=== PATIENT | female | born 1940 | race African-American/Black ===

== ENCOUNTER 2016-12-13 13:36 | Emergency (ER) | payer MEDICARE, OTHER ==
[~2016-12-13] VITALS: Ht 165.1 cm; Wt 80.0 kg
[~2016-12-13 13:36] MED LIST: NAPR220T95 PO
[2016-12-13 13:39] VITALS: BP 198/91; PULSE 81; RESP 12; TEMP 98.2; O2SAT 98
--- NOTE | 2016-12-13 14:12 | PD ---
HPI Chief Complaint: Dizziness Time Seen by Provider: 14:11 Travel History International Travel<30 days: No Contact w/Intl Traveler<30days: No Traveled to known affect area: No History of Present Illness HPI 76-year-old female with no significant medical history presents to the emergency department for evaluation. Patient states that she got up this morning and was feeling well. She had some coughing a little something to eat. She states she then began to feel lightheaded and not quite herself. She states this has continued intermittently throughout the day. She states right now she "just doesn't feel right." Denies any headache. No nausea or vomiting. No focal deficits or weakness. No chest pain or shortness of breath. No recent illnesses, fever, or chills. She has no other symptoms to report. [facility] Past Medical History Cardiovascular Problems: Yes (HTN) : 4 Para: 4 Past Surgical History Hysterectomy: Yes Social History Alcohol Use: Yes (WINE) Tobacco Use: No Substance Use: No Allergies-Medications (Allergen,Severity, Reaction): Coded Allergies: No Known Allergies (Verified , 12/13/16) Reported Meds & Prescriptions Reported Meds & Active Scripts Active No Active Prescriptions or Reported Medications Review of Systems Except as stated in HPI: all other systems reviewed are Neg Physical Exam Narrative GENERAL: Well-nourished male patient, ambulatory with a nonantalgic gait, no acute distress SKIN: Warm and dry. HEAD: Atraumatic. Normocephalic. EYES: Pupils equal and round. No scleral icterus. No injection or drainage. ENT: No nasal bleeding or discharge. Mucous membranes pink and moist. NECK: Trachea midline. No JVD. CARDIOVASCULAR: Regular rate and rhythm. No murmur appreciated. RESPIRATORY: No accessory muscle use. Clear to auscultation. Breath sounds equal bilaterally. GASTROINTESTINAL: Abdomen soft, non-tender, nondistended. Hepatic and splenic margins not palpable. MUSCULOSKELETAL: No obvious deformities. No clubbing. No cyanosis. No edema. NEUROLOGICAL: Awake and alert. No obvious cranial nerve deficits. Motor grossly within normal limits. Normal speech. PSYCHIATRIC: Appropriate mood and affect; insight and judgment normal. Data Data Last Documented VS Vital Signs Date Time Temp Pulse Resp B/P Pulse Ox O2 Delivery O2 Flow Rate FiO2 12/13/16 18:42 98.1 79 18 186/86 99 Room Air Orders Electrocardiogram (12/13/16 14:11) Basic Metabolic Panel (Bmp) (12/13/16 14:11) Complete Blood Count With Diff (12/13/16 14:11) Magnesium (Mg) (12/13/16 14:11) Ckmb (Isoenzyme) Profile (12/13/16 14:11) Troponin I (12/13/16 14:11) Act Partial Throm Time (Ptt) (12/13/16 14:11) Prothrombin Time / Inr (Pt) (12/13/16 14:11) Urinalysis - C+S If Indicated (12/13/16 14:11) Hydralazine (Apresoline) (12/13/16 17:45) Labs Laboratory Tests Test 12/13/16 14:20 White Blood Count 6.2 TH/MM3 Red Blood Count 4.99 MIL/MM3 Hemoglobin 14.3 GM/DL Hematocrit 43.7 % Mean Corpuscular Volume 87.5 FL Mean Corpuscular Hemoglobin 28.7 PG Mean Corpuscular Hemoglobin 32.8 % Concent Red Cell Distribution Width 14.5 % Platelet Count 256 TH/MM3 Mean Platelet Volume 9.3 FL Neutrophils (%) (Auto) 54.8 % Lymphocytes (%) (Auto) 28.0 % Monocytes (%) (Auto) 12.8 % Eosinophils (%) (Auto) 2.4 % Basophils (%) (Auto) 2.0 % Neutrophils # (Auto) 3.4 TH/MM3 Lymphocytes # (Auto) 1.7 TH/MM3 Monocytes # (Auto) 0.8 TH/MM3 Eosinophils # (Auto) 0.1 TH/MM3 Basophils # (Auto) 0.1 TH/MM3 CBC Comment AUTO DIFF Differential Comment AUTO DIFF CONFIRMED Platelet Estimate NORMAL Platelet Morphology Comment NORMAL Red Cell Morphology Comment NORMAL Prothrombin Time 10.7 SEC Prothromb Time International 1.0 RATIO Ratio Activated Partial 25.7 SEC Thromboplast Time Urine Color LIGHT-YELLOW Urine Turbidity CLEAR Urine pH 5.0 Urine Specific [place] 1.002 Urine Protein NEG mg/dL Urine Glucose (UA) NEG mg/dL Urine Ketones NEG mg/dL Urine Occult Blood NEG Urine Nitrite NEG Urine Bilirubin NEG Urine Urobilinogen LESS THAN 2.0 MG/DL Urine Leukocyte Esterase SMALL Urine WBC 2 /hpf Urine Squamous Epithelial 4 /hpf Cells Urine Bacteria RARE /hpf Microscopic Urinalysis Comment CULT NOT INDICATED Sodium Level 139 MEQ/L Potassium Level 4.9 MEQ/L Chloride Level 105 MEQ/L Carbon Dioxide Level 25.9 MEQ/L Anion Gap 8 MEQ/L Blood Urea Nitrogen 18 MG/DL Creatinine 1.05 MG/DL Estimat Glomerular Filtration 62 ML/MIN Rate Random Glucose 99 MG/DL Calcium Level 9.1 MG/DL Magnesium Level 2.3 MG/DL Total Creatine Kinase 74 U/L Troponin I LESS THAN 0.02 NG/ML MDM Medical Decision Making Medical Screen Exam Complete: Yes Emergency Medical Condition: Yes Medical Record Reviewed: Yes Differential Diagnosis Electrolyte abnormality versus vertigo versus dehydration versus intracranial etiology versus cardiac etiology Narrative Course 76-year-old female presents to the emergency department for evaluation. Patient appears well and without distress. There are no focal deficits or weakness on exam. Workup was initiated in triage. Once a medical bed becomes available, patient will be transferred and care assumed by that provider. Scripts No Active Prescriptions or Reported Meds Condition: Stable Kati Rios Dec 13, 2016 14:11
[2016-12-13 14:56] LABS: AUTOMATED NEUTROPHIL # 3.4 TH/MM3 (1.8-7.7); BASOPHIL # 0.1 TH/MM3 (0-0.2); EOSINOPHIL # 0.1 TH/MM3 (0-0.4); EOSINOPHIL % 2.4 % (0.0-4.0); HEMATOCRIT 43.7 % (35.0-46.0); LYMPHOCYTE # 1.7 TH/MM3 (1.0-4.8); MEAN CELL VOLUME 87.5 FL (80.0-100.0); MEAN CORPUSCULAR HEMOGLOBIN 28.7 PG (27.0-34.0); MEAN CORPUSCULAR HGB CONC 32.8 % (32.0-36.0); MONO % 12.8 % (0.0-8.0); NEUT % 54.8 % (16.0-70.0); PLATELET COUNT 256 TH/MM3 (150-450); RED BLOOD COUNT 4.99 MIL/MM3 (4.00-5.30); RED CELL DISTRIBUTION WIDTH 14.5 % (11.6-17.2); WHITE BLOOD COUNT 6.2 TH/MM3 (4.0-11.0)
[2016-12-13 14:58] LABS: HEMO FLAGS AUTO DIFF
[2016-12-13 15:12] LABS: BACTERIA, URINE RARE /hpf; BLOOD, URINE NEG (NEG); COMMENT (UR) CULT NOT INDICATED; CULTURE IF INDICATED CULT NOT INDICATED; GLUCOSE,URINE NEG (NEG); KETONE, URINE NEG (NEG); NITRITE,URINE NEG (NEG); SQUAMOUS EPITHELIAL CELL URINE 4 /hpf (0-5); URINE COLOR LIGHT-YELLOW (YELLW/STRAW)
[2016-12-13 15:13] LABS: APTT (PATIENT) 25.7 SEC (24.3-30.1); PROTHROMBIN TIME - PATIENT 10.7 SEC (9.8-11.6)
[2016-12-13 15:21] LABS: ANION GAP 8 MEQ/L (5-15); BICARBONATE 25.9 MEQ/L (21.0-32.0); BLOOD UREA NITROGEN 18 MG/DL (7-18); CHLORIDE 105 MEQ/L (98-107); GLOMERULAR FILTRATION RATE 62 ML/MIN (>89); MAGNESIUM 2.3 MG/DL (1.5-2.5); SODIUM (NA) 139 MEQ/L (136-145)
[2016-12-13 15:32] LABS: CREATINE KINASE 74 U/L (26-192); PLATELET ESTIMATE SMEAR NORMAL (NORMAL); PLATELET MORPHOLOGY NORMAL (NORMAL); POTASSIUM 4.9 MEQ/L (3.5-5.1); SCAN/DIFF AUTO DIFF CONFIRMED
--- NOTE | 2016-12-13 15:59 | EKG ---
Date Performed: 12/13/2016 Time Performed: 14:40:08 PTAGE: 76 years EKG: Sinus rhythm WITH SHORT FL INTERVAL VOLTAGE CRITERIA FOR LVH NONSPECIFIC T-WAVE ABNORMALITY ABNORMAL ECG NO PREVIOUS TRACING DOCTOR: Luis Hernandes Interpretating Date/Time 12/13/2016 15:57:21
[2016-12-13 17:35] VITALS: BP 206/95; PULSE 80; RESP 18; O2SAT 98
--- NOTE | 2016-12-13 17:44 | PD ---
Physical Exam Narrative I, Dr. Cooley, have reviewed the advance practice practitioner's documentation and am in agreement, met with the patient face to face, made the diagnosis, and the medical decision making was done by me. *My assessment and Findings: Dizziness secondary to hypoglycemia vs. arrhythmia vs. dehydration 76yo F with no significant PMH presents to the ED with c/o feeling lightheaded at around 12pm today while sitting down. Stated she drank some gatorade and felt better but still a little lightheaded so came to the ED. Pt denies any fever, headache, visual changes, chest pain, sob, n/v, abdominal pain, focal weakness or numbness. Pt was initially seen in triage and by the time she came to the medical room, she is no longer dizzy and wants to go home. Pt is hypertensive with BP elevated at 206/95. Pt denies any history of HTN except gestational HTN. Will give hydralazine 25mg PO and reevaluate. Labs reviewed, no leukocytosis. H/H normal. Troponin negative. Creatinine mildly elevated at 1.05. UA showed rare small leukocyte but WBC only 2 and culture not indicated. Repeat BP was 186/86 after hydralazine 25mg PO. Instructed pt to follow up with PMD for HTN. Data Data Last Documented VS Vital Signs Date Time Temp Pulse Resp B/P Pulse Ox O2 Delivery O2 Flow Rate FiO2 12/13/16 18:42 98.1 79 18 186/86 99 Room Air Orders Electrocardiogram (12/13/16 14:11) Basic Metabolic Panel (Bmp) (12/13/16 14:11) Complete Blood Count With Diff (12/13/16 14:11) Magnesium (Mg) (12/13/16 14:11) Ckmb (Isoenzyme) Profile (12/13/16 14:11) Troponin I (12/13/16 14:11) Act Partial Throm Time (Ptt) (12/13/16 14:11) Prothrombin Time / Inr (Pt) (12/13/16 14:11) Urinalysis - C+S If Indicated (12/13/16 14:11) Hydralazine (Apresoline) (12/13/16 17:45) Labs Laboratory Tests Test 12/13/16 14:20 White Blood Count 6.2 TH/MM3 Red Blood Count 4.99 MIL/MM3 Hemoglobin 14.3 GM/DL Hematocrit 43.7 % Mean Corpuscular Volume 87.5 FL Mean Corpuscular Hemoglobin 28.7 PG Mean Corpuscular Hemoglobin 32.8 % Concent Red Cell Distribution Width 14.5 % Platelet Count 256 TH/MM3 Mean Platelet Volume 9.3 FL Neutrophils (%) (Auto) 54.8 % Lymphocytes (%) (Auto) 28.0 % Monocytes (%) (Auto) 12.8 % Eosinophils (%) (Auto) 2.4 % Basophils (%) (Auto) 2.0 % Neutrophils # (Auto) 3.4 TH/MM3 Lymphocytes # (Auto) 1.7 TH/MM3 Monocytes # (Auto) 0.8 TH/MM3 Eosinophils # (Auto) 0.1 TH/MM3 Basophils # (Auto) 0.1 TH/MM3 CBC Comment AUTO DIFF Differential Comment AUTO DIFF CONFIRMED Platelet Estimate NORMAL Platelet Morphology Comment NORMAL Red Cell Morphology Comment NORMAL Prothrombin Time 10.7 SEC Prothromb Time International 1.0 RATIO Ratio Activated Partial 25.7 SEC Thromboplast Time Urine Color LIGHT-YELLOW Urine Turbidity CLEAR Urine pH 5.0 Urine Specific [place] 1.002 Urine Protein NEG mg/dL Urine Glucose (UA) NEG mg/dL Urine Ketones NEG mg/dL Urine Occult Blood NEG Urine Nitrite NEG Urine Bilirubin NEG Urine Urobilinogen LESS THAN 2.0 MG/DL Urine Leukocyte Esterase SMALL Urine WBC 2 /hpf Urine Squamous Epithelial 4 /hpf Cells Urine Bacteria RARE /hpf Microscopic Urinalysis Comment CULT NOT INDICATED Sodium Level 139 MEQ/L Potassium Level 4.9 MEQ/L Chloride Level 105 MEQ/L Carbon Dioxide Level 25.9 MEQ/L Anion Gap 8 MEQ/L Blood Urea Nitrogen 18 MG/DL Creatinine 1.05 MG/DL Estimat Glomerular Filtration 62 ML/MIN Rate Random Glucose 99 MG/DL Calcium Level 9.1 MG/DL Magnesium Level 2.3 MG/DL Total Creatine Kinase 74 U/L Troponin I LESS THAN 0.02 NG/ML MDM Supervised Visit with SANKET: Yes Interpretation(s) EKG: NSR 67bpm. Normal axis. TWI III. LVH. Diagnosis Primary Impression: Elevated blood pressure reading Patient Instructions: General Instructions Departure Forms: Tests/Procedures Additional Instruction: Please follow up with your PMD regarding elevated blood pressure. Return to the ED if symptoms worsen. Med/Other Pt SpecificInfo: Prescription(s) given Scripts No Active Prescriptions or Reported Meds Disposition: 01 DISCHARGE HOME Condition: Stable Cindy Cooley DO Dec 13, 2016 17:44
[2016-12-13] MEDS ORDERED: hydrALAZINE HCL 25 MG TAB PO ONE (17:45)
[2016-12-13 18:42] VITALS: BP 186/86; PULSE 79; RESP 18; TEMP 98.1; O2SAT 99
== END 2016-12-13 19:21 | disposition home or self-care (01) ==
LOC: NEPC 13:36
DX: I10 Essential (primary) hypertension (principal); R05 Cough; R42 Dizziness and giddiness; R94.31 Abnormal electrocardiogram [ECG] [EKG]
CPT/HCPCS: 80048; 81001; 82550; 83735; 84484; 85025; 85610; 85730; 93005

== ENCOUNTER 2018-01-28 18:18 | Emergency (ER) | payer MEDICARE ==
[2018-01-28] VITALS (7 sets, daily range): BP systolic 141–193; BP diastolic 65–86; PULSE 68–74; RESP 16–18; TEMP 98.7; O2SAT 96–100
[~2018-01-28] VITALS: Ht 165.1 cm; Wt 73.0 kg
[2018-01-28] MEDS ORDERED: LOSA25TA PO (20:49)
[2018-01-28] MEDS ORDERED: HYDR12.57 PO (20:49)
--- NOTE | 2018-01-28 21:03 | PD ---
HPI Chief Complaint: Dizziness Time Seen by Provider: 20:45 Travel History International Travel<30 days: No Contact w/Intl Traveler<30days: No Traveled to known affect area: No History of Present Illness HPI Patient is a 77-year-old female presenting to the emergency department for evaluation of dizziness. Patient states she was cooking dinner in her kitchen at 2 PM when she started to feel dizzy, at 3:30 PM she decided to rest, the dizziness improves when she sits down. Is worse with head movement. Patient states she feels as if the room is spinning. She denies any chest pain, shortness of breath, nausea, visual changes. Symptom onset was fairly sudden, symptom severity is mild. Symptoms are exacerbated with movement. Patient reports a history of hypertension, currently on losartan and HCTZ, she is compliant with medications. She reports that her blood pressure was elevated as well. She denies any headaches. She is due to take her blood pressure medication at this time. She states she has not taken it tonight because she has not eaten dinner. PFSH Past Medical History Diminished Hearing: Yes (BILATERAL) Hypertension: Yes Tetanus Vaccination: < 5 Years Influenza Vaccination: No : 4 Para: 4 Past Surgical History Hysterectomy: Yes Social History Alcohol Use: Yes (WINE) Tobacco Use: No Substance Use: No Allergies-Medications (Allergen,Severity, Reaction): Coded Allergies: No Known Allergies (Verified Adverse Reaction, Unknown, 01/28/18) Reported Meds & Prescriptions Reported Meds & Active Scripts Active Reported Hydrochlorothiazide 12.5 Mg Cap 12.5 Mg PO BID Losartan (Losartan Potassium) 25 Mg Tab 25 Mg PO BID Review of Systems Except as stated in HPI: all other systems reviewed are Neg Eyes: No: Blurred Vision HENT: No: Headaches Cardiovascular: No: Chest Pain or Discomfort Respiratory: No: Shortness of Breath Gastrointestinal: No: Nausea, Vomiting, Abdominal Pain Neurologic: Positive: Dizziness, No: Weakness, Focal Abnormalities, Change in Mentation, Slurred Speech, Sensory Disturbance Physical Exam Narrative GENERAL: Well-developed, well-nourished, alert -[place] female. Presenting in no acute distress. SKIN: Warm and dry. HEAD: Atraumatic. Normocephalic. EYES: Pupils equal and round. No scleral icterus. No injection or drainage. ENT: No nasal bleeding or discharge. Mucous membranes pink and moist. NECK: Trachea midline. No JVD. CARDIOVASCULAR: Regular rate and rhythm. RESPIRATORY: No accessory muscle use. Clear to auscultation. Breath sounds equal bilaterally. GASTROINTESTINAL: Abdomen soft, non-tender, nondistended. Hepatic and splenic margins not palpable. MUSCULOSKELETAL: Extremities without clubbing, cyanosis, or edema. No obvious deformities. NEUROLOGICAL: Awake and alert. No obvious cranial nerve deficits. Motor grossly within normal limits. Five out of 5 muscle strength in the arms and legs. Normal speech. PSYCHIATRIC: Appropriate mood and affect; insight and judgment normal. Data Data Last Documented VS Vital Signs Date Time Temp Pulse Resp B/P (MAP) Pulse Ox O2 Delivery O2 Flow Rate FiO2 01/28/18 22:00 73 16 159/74 (102) 96 Room Air 01/28/18 18:28 98.7 Orders Orders Orthostatic Vital Signs (01/28/18 20:54) Electrocardiogram (01/28/18 21:05) Complete Blood Count With Diff (01/28/18 21:05) Comprehensive Metabolic Panel (01/28/18 21:05) Magnesium (Mg) (01/28/18 21:05) Ckmb (Isoenzyme) Profile (01/28/18 21:05) Troponin I (01/28/18 21:05) Ecg Monitoring (01/28/18 21:05) Iv Access Insert/Monitor (01/28/18 21:05) Oximetry (01/28/18 21:05) Meclizine (Antivert) (01/28/18 21:15) Sodium Chloride 0.9% Flush (Ns Flush) (01/28/18 21:15) Labs Laboratory Tests Test 01/28/18 21:25 White Blood Count 7.2 TH/MM3 Red Blood Count 4.92 MIL/MM3 Hemoglobin 14.8 GM/DL Hematocrit 43.9 % Mean Corpuscular Volume 89.2 FL Mean Corpuscular Hemoglobin 30.2 PG Mean Corpuscular Hemoglobin Concent 33.8 % Red Cell Distribution Width 14.0 % Platelet Count 217 TH/MM3 Mean Platelet Volume 8.5 FL Neutrophils (%) (Auto) 44.6 % Lymphocytes (%) (Auto) 38.6 % Monocytes (%) (Auto) 13.7 % Eosinophils (%) (Auto) 1.8 % Basophils (%) (Auto) 1.3 % Neutrophils # (Auto) 3.2 TH/MM3 Lymphocytes # (Auto) 2.8 TH/MM3 Monocytes # (Auto) 1.0 TH/MM3 Eosinophils # (Auto) 0.1 TH/MM3 Basophils # (Auto) 0.1 TH/MM3 CBC Comment DIFF FINAL Differential Comment MDM Medical Decision Making Medical Screen Exam Complete: Yes Emergency Medical Condition: Yes Interpretation(s) Vital Signs Date Time Temp Pulse Resp B/P (MAP) Pulse Ox O2 Delivery O2 Flow Rate FiO2 01/28/18 20:51 182/86 (118) 01/28/18 20:46 68 16 189/83 (118) 99 Room Air 01/28/18 18:28 98.7 74 18 193/85 (121) 100 Differential Diagnosis Vertigo versus hypertension versus less likely CVA versus other Narrative Course Patient is well-appearing 77-year-old female presenting for evaluation of dizziness and subsequent hypertension. Patient has no focal deficits on exam. She is well-appearing. Dizziness is worse with head movement and position changes. She has not taken her blood pressure medications this evening, she was under the impression she needed to take it with a meal. Orthostatic vital signs are negative. She reported a history of dizziness in the past. CBC with no acute findings EKG shows normal sinus rhythm, this was reviewed by my attending physician Chemistry is pending. Patient reports improvement in her dizziness after administration of meclizine. Care of patient transferred to my attending physician at the end of my shift. She will determine patient's disposition. Skye Walker Jan 28, 2018 21:03
[2018-01-28] MEDS ORDERED: SODIUM CHLORIDE 0.9% FLUSH 10 ML FLUSH IVF PRN (21:15)
[2018-01-28] MEDS ORDERED: MECLIZINE HCL 25 MG TAB PO ONE (21:15)
[2018-01-28 21:59] LABS: AUTOMATED NEUTROPHIL # 3.2 TH/MM3 (1.8-7.7); BASOPHIL # 0.1 TH/MM3 (0-0.2); BASOPHIL % 1.3 % (0.0-2.0); EOSINOPHIL # 0.1 TH/MM3 (0-0.4); EOSINOPHIL % 1.8 % (0.0-4.0); HEMATOCRIT 43.9 % (35.0-46.0); HEMOGLOBIN 14.8 GM/DL (11.6-15.3); LYMPH % 38.6 % (9.0-44.0); LYMPHOCYTE # 2.8 TH/MM3 (1.0-4.8); MEAN CELL VOLUME 89.2 FL (80.0-100.0); MEAN CORPUSCULAR HEMOGLOBIN 30.2 PG (27.0-34.0); MEAN CORPUSCULAR HGB CONC 33.8 % (32.0-36.0); MEAN PLATELET VOLUME 8.5 FL (7.0-11.0); MONO % 13.7 % (0.0-8.0); NEUT % 44.6 % (16.0-70.0); PLATELET COUNT 217 TH/MM3 (150-450); RED BLOOD COUNT 4.92 MIL/MM3 (4.00-5.30); WHITE BLOOD COUNT 7.2 TH/MM3 (4.0-11.0)
--- NOTE | 2018-01-28 22:13 | PD ---
Physical Exam Narrative I, Dr. Cooley, have reviewed the advance practice practitioner's documentation and am in agreement, met with the patient face to face, made the diagnosis, and the medical decision making was done by me. *My assessment and Findings: Dehydration vs. electrolyte abnormalities vs. arrhythmia 77yo F with HTN here with c/o dizziness today. Pt said she was lightheaded when she was standing but felt better sitting down. Pt said she does not feel dizzy while laying down now. Denies any fever, chest pain, sob, n/v, abdominal pain, focal weakness or numbness. Labs reviewed, no leukocytosis. H/H normal. CMP unremarkable. Troponin negative. Pt reevaluated at bedside and feels good. Denies any dizziness and wants to go home. Return precautions given. Data Data Last Documented VS Vital Signs Date Time Temp Pulse Resp B/P (MAP) Pulse Ox O2 Delivery O2 Flow Rate FiO2 01/28/18 23:04 69 16 151/65 (93) 97 Room Air 01/28/18 18:28 98.7 Orders Orders Orthostatic Vital Signs (01/28/18 20:54) Electrocardiogram (01/28/18 21:05) Complete Blood Count With Diff (01/28/18 21:05) Comprehensive Metabolic Panel (01/28/18 21:05) Magnesium (Mg) (01/28/18 21:05) Ckmb (Isoenzyme) Profile (01/28/18 21:05) Troponin I (01/28/18 21:05) Ecg Monitoring (01/28/18 21:05) Iv Access Insert/Monitor (01/28/18 21:05) Oximetry (01/28/18 21:05) Meclizine (Antivert) (01/28/18 21:15) Sodium Chloride 0.9% Flush (Ns Flush) (01/28/18 21:15) Labs Laboratory Tests Test 01/28/18 21:25 01/28/18 22:45 White Blood Count 7.2 TH/MM3 Red Blood Count 4.92 MIL/MM3 Hemoglobin 14.8 GM/DL Hematocrit 43.9 % Mean Corpuscular Volume 89.2 FL Mean Corpuscular Hemoglobin 30.2 PG Mean Corpuscular Hemoglobin Concent 33.8 % Red Cell Distribution Width 14.0 % Platelet Count 217 TH/MM3 Mean Platelet Volume 8.5 FL Neutrophils (%) (Auto) 44.6 % Lymphocytes (%) (Auto) 38.6 % Monocytes (%) (Auto) 13.7 % Eosinophils (%) (Auto) 1.8 % Basophils (%) (Auto) 1.3 % Neutrophils # (Auto) 3.2 TH/MM3 Lymphocytes # (Auto) 2.8 TH/MM3 Monocytes # (Auto) 1.0 TH/MM3 Eosinophils # (Auto) 0.1 TH/MM3 Basophils # (Auto) 0.1 TH/MM3 CBC Comment DIFF FINAL Differential Comment Blood Urea Nitrogen 9 MG/DL Creatinine 0.79 MG/DL Random Glucose 100 MG/DL Total Protein 6.9 GM/DL Albumin 3.6 GM/DL Calcium Level 9.0 MG/DL Magnesium Level 2.0 MG/DL Alkaline Phosphatase 49 U/L Aspartate Amino Transf (AST/SGOT) 18 U/L Alanine Aminotransferase (ALT/SGPT) 16 U/L Total Bilirubin 0.4 MG/DL Sodium Level 134 MEQ/L Potassium Level 3.6 MEQ/L Chloride Level 99 MEQ/L Carbon Dioxide Level 26.1 MEQ/L Anion Gap 9 MEQ/L Estimat Glomerular Filtration Rate 86 ML/MIN Total Creatine Kinase 52 U/L Troponin I LESS THAN 0.02 NG/ML MDM Supervised Visit with SANKET: Yes Interpretation(s) EKG: NSR 65bpm. Normal axis. No ST segment elevation or depression. QTc 420ms. Diagnosis Primary Impression: Dizziness Patient Instructions: General Instructions Departure Forms: Tests/Procedures Additional Instruction: Please follow up with your primary care physician in 2-3 days. Return to the ED if symptoms worsen. Med/Other Pt SpecificInfo: No Change to Meds Disposition: 01 DISCHARGE HOME Condition: Stable Cindy Cooley Jan 28, 2018 22:13
[2018-01-28 23:06] LABS: ALBUMIN 3.6 GM/DL (3.4-5.0); AST (GOT) 18 U/L (15-37); BICARBONATE 26.1 MEQ/L (21.0-32.0); BLOOD UREA NITROGEN 9 MG/DL (7-18); CHLORIDE 99 MEQ/L (98-107); CREATININE 0.79 MG/DL (0.50-1.00); GLOMERULAR FILTRATION RATE 86 ML/MIN (>89); GLUCOSE,RANDOM 100 MG/DL (74-106); SODIUM (NA) 134 MEQ/L (136-145)
[2018-01-28 23:07] LABS: ALT (GPT) 16 U/L (10-53)
[2018-01-28 23:11] LABS: ALKALINE PHOSPHATASE 49 U/L (45-117); TOTAL BILIRUBIN ADULT 0.4 MG/DL (0.2-1.0); TOTAL PROTEIN 6.9 GM/DL (6.4-8.2); TROPONIN I LESS THAN 0.02 NG/ML (0.02-0.05)
--- NOTE | 2018-01-29 18:36 | EKG ---
Date Performed: 01/28/2018 Time Performed: 21:19:27 PTAGE: 77 years EKG: Sinus rhythm POSSIBLE LEFT ATRIAL ENLARGEMENT BORDERLINE ECG PREVIOUS TRACING : 12/13/2016 14.40 Since the prior tracing, there has been no significant greenberg DOCTOR: Allyson Adamson Interpretating Date/Time 01/29/2018 18:34:57
== END 2018-01-28 23:51 | disposition home or self-care (01) ==
LOC: NEPC 18:18
DX: R42 Dizziness and giddiness (principal); I10 Essential (primary) hypertension; Z79.899 Other long term (current) drug therapy
CPT/HCPCS: 80053; 82550; 83735; 84484; 85025; 93005; 99284